=== PATIENT | female | born 1970 | race Caucasian/White ===

== ENCOUNTER 2020-08-30 19:16 | Emergency (ER) | payer MEDICAID ==
[~2020-08-30] VITALS: Ht 162.6 cm; Wt 136.1 kg
[2020-08-30 19:42] VITALS: BP_SYST 160
[2020-08-30 21:19] VITALS: BP_SYST 142
== END 2020-08-30 21:19 | disposition home or self-care (01) ==
LOC: SED 19:16
DX: L03.116 Cellulitis of left lower limb (principal); L03.115 Cellulitis of right lower limb; Z90.49 Acquired absence of other specified parts of digestive tract
CPT/HCPCS: 99283

== ENCOUNTER 2024-04-09 19:45 | Emergency (ER) | payer MEDICAID ==
[~2024-04-09] VITALS: Ht 162.6 cm; Wt 149.7 kg
[2024-04-09 19:50] VITALS: PULSE 85; RESP 18; TEMP 98.5; O2SAT 95
[2024-04-09] MEDS ORDERED: LOSARTAN POTASSIUM 25 MG TABLET PO SCH (20:45)
[2024-04-09] MEDS ORDERED: LOSARTAN POTASSIUM 25 MG TABLET ONE (20:51)
[2024-04-09] MEDS: KETOROLAC TROMETHAMINE 30 MG VIAL IM ONE (20:55)
[2024-04-09] MEDS: LOSARTAN POTASSIUM 25 MG TABLET PO ONE (21:14)
[2024-04-09] MEDS ORDERED: CEPH-548 PO (21:15)
[2024-04-09] MEDS ORDERED: DICL20GE TP (21:15)
[2024-04-09] MEDS: cephALEXin 500 MG CAPSULE PO ONE (21:22)
[2024-04-09 21:41] VITALS: BP_SYST 127; PULSE 85; RESP 22; TEMP 98.8; O2SAT 96
== END 2024-04-09 21:30 | disposition home or self-care (01) ==
LOC: SED 19:45
DX: L03.115 Cellulitis of right lower limb (principal); E66.01 Morbid (severe) obesity due to excess calories; I10 Essential (primary) hypertension; Z68.43 Body mass index [BMI] 50.0-59.9, adult; Z88.1 Allergy status to other antibiotic agents
CPT/HCPCS: 99285; 93971; 93005; 96372; J1885